=== PATIENT | female | born 1955 | race Caucasian/White ===

== ENCOUNTER → 2019-06-20 | Outpatient (CLI) | payer OTHER ==
[~2019-06-20] MED LIST: ASPIR 8181 MG PO; ESTRADIOL1 MG PO; LOSARTAN POTAS100 MG PO; PANTOPRAZOLE SO40 MG PO; SPIRONOLACTONE25 MG PO
--- NOTE | 2019-06-20 10:02 | Diagnostic Imaging Report ---
Examination: MRI SPINE LUMBAR WO CONTRAST. History: Low back pain radiating down the front of the right leg and to the foot with associated numbness and weakness. Comparison studies: None Technique: Sagittal, coronal and axial T2 , sagittal T1 and STIR; axial spin density oblique. Findings: Number of lumbar vertebral bodies: Five. Alignment: Normal lordosis. No scoliosis. Soft tissues: No T2 hyperintense inflammatory changes. Posterior paraspinal soft tissues and muscles: No abnormality. Lower thoracic cord: Normal in signal and morphology. The tip of the conus is at L1. Cauda equina: No masses. No arachnoiditis. Vertebrae: No fractures, infection or neoplasm. Degenerative changes: L1-L2: Mild bilateral facet arthropathy. No disc herniation or bulge or canal or foraminal stenosis. L2-L3: Asymmetric to the left disc bulge and bilateral facet arthropathy results in moderate left neural foraminal narrowing and mild canal stenosis. No right foraminal narrowing. L3-L4: Mild diffuse disc bulge, ligamentum flavum thickening and mild bilateral facet arthropathy result in mild left neural foraminal narrowing. No right foraminal or canal stenosis. L4-L5: Mild diffuse disc bulge and bilateral facet arthropathy. No disc herniation or canal or foraminal stenosis. L5-S1: Mild diffuse disc bulge and mild bilateral facet arthropathy. No foraminal or canal stenosis. IMPRESSION: Degenerative changes from L1-L2 through L5-S1 with mild canal stenosis and moderate left foraminal narrowing at L2-L3. Signed by: Dr. Nica Covarrubias M.D. on 06/20/2019 9:59 AM
== END ==
LOC: MRI 07:46
PROVIDERS: ATTEND Family Medicine
DX: M47.27 Other spondylosis with radiculopathy, lumbosacral region (principal)
CPT/HCPCS: 72148

== ENCOUNTER → 2019-11-27 | Outpatient (CLI) | payer OTHER ==
--- NOTE | 2019-11-27 13:37 | Diagnostic Imaging Report ---
Right knee MRI without contrast. History:Pain. Meniscus tear. Comparison: None available Technique: Multiplanar multi-sequence MRI of the knee without contrast. Findings: Medial compartment: No meniscal tear. Mild cartilage fraying. No MCL tear. Lateral compartment: Nondisplaced tear anterior horn/body, series 5 image 12. No cartilage abnormality. The LCL complex is normal. Intercondylar notch: The ACL and PCL are intact. Patellofemoral compartment: No chondromalacia or patellar dislocation. Extensor mechanism: The quadriceps and patellar tendons are normal. Other findings: There is a joint effusion and synovitis. There is no acute fracture, subluxation or avascular necrosis. IMPRESSION: Nondisplaced tear anterior horn/body lateral meniscus, series 5 image 12. Signed by: Dr. Wilton Moser M.D. on 11/27/2019 1:34 PM
== END ==
LOC: MRI 10:34
PROVIDERS: ATTEND Family Medicine
DX: M23.303 Other meniscus derangements, unspecified medial meniscus, right knee (principal)

== ENCOUNTER → 2023-02-10 | Outpatient (REF) | payer MEDICARE | LOC: MRI 10:30 | PROVIDERS: ATTEND Family Medicine | DX: M54.42 Lumbago with sciatica, left side (principal); M54.41 Lumbago with sciatica, right side; M54.17 Radiculopathy, lumbosacral region; M47.816 Spondylosis without myelopathy or radiculopathy, lumbar region; M51.36 Other intervertebral disc degeneration, lumbar region | CPT/HCPCS: 72148 ==